=== PATIENT | female | born 1990 | race African-American/Black ===

== ENCOUNTER 2024-11-23 12:50 | Outpatient (CLI) | payer SELFPAY ==
[2024-11-23 13:24] LABS: Basophils Percent Auto 0.5 % (0.2-1.2); Eosinophils Absolute Auto 0.1 K/mm3 (0-0.3); Eosinophils Percent Auto 0.9 % (0-4.4); Hemoglobin 11.1 g/dL (12.0-15.0); Immature Granulocyte Absolute 0.02 K/mm3 (0.00-0.031); Immature Granulocyte Percent A 0.4 % (0-0.5); Lymphocytes Percent Auto 28.6 % (18.3-44.2); Mean Corpuscular HGB Conc 32.6 g/dl (32-36); Mean Corpuscular Hemoglobin 28.5 pg (26-34); Mean Corpuscular Volume 87.4 fl (80-100); Mean Platelet Volume 11.3 fl (7.4-10.4); Monocytes Absolute Auto 0.4 K/mm3 (0.1-0.6); Monocytes Percent Auto 7.7 % (2.6-8.5); Neutrophils Absolute Auto 3.5 K/mm3 (1.3-6.7); Neutrophils Percent Auto 61.9 % (45.5-73.1); Platelet Count Result 220 k/mm3 (150-375); Red Blood Count 3.89 M/mm3 (4.2-5.4); Red Cell Distribution Width 13.5 % (11.5-14.5); White Blood Count 5.6 K/mm3 (4.5-10.0)
[2024-11-23 14:40] LABS: HIV 1/2 Ab P24 Ag Result Negative (Negative)
[2024-11-23 15:05] LABS: Syphilis IgG/IgM Antibody Negative (Negative)
[2024-11-23 15:14] LABS: Hepatitis B Surface Antigen Negative (Negative); Rubella IgG Antibody 62.2 IU/ML
[2024-11-25 03:28] LABS: CMV IgG Antibody >10.00 U/mL; Varicella IgG Antibody 3.31 S/CO
== END 2024-11-23 12:51 | disposition home or self-care (01) ==
PROVIDERS: Visit Provider Student in an Organized Health Care Education/Training Program
DX: N91.2 Amenorrhea, unspecified (principal)
CPT/HCPCS: 36415; 84702; 85025; 86593; 86644; 86703; 86747; 86762; 86787; 86850; 86900; 86901; 87086; 87340; G0432

== ENCOUNTER 2025-02-22 12:46 | Outpatient (CLI) | payer SELFPAY ==
[2025-02-22 14:26] LABS: Hematocrit 32.4 % (37.0-47.0); Hemoglobin 10.3 g/dL (12.0-15.0); Immature Granulocyte Percent A 0.8 % (0-0.5); Lymphocytes Absolute Auto 1.79 K/mm3 (0.9-3.2); Mean Corpuscular HGB Conc 31.8 g/dl (32-36); Mean Corpuscular Hemoglobin 26.3 pg (26-34); Mean Corpuscular Volume 82.7 fl (80-100); Nucleated Red Blood Cells Absolute Auto 0.000 K/mm3 (0.0-0.012); Nucleated Red Blood Cells Perc 0.0 % (0.0-0.2); Platelet Count Result 263 k/mm3 (150-375); Red Blood Count 3.92 M/mm3 (4.2-5.4); White Blood Count 6.2 K/mm3 (4.5-10.0)
[2025-02-22 14:38] LABS: Glucose 1 Hour PP 50gm Dose 161 mg/dL
[2025-02-22 15:18] LABS: HIV 1/2 Ab P24 Ag Result Negative (Negative)
== END 2025-02-22 12:47 | disposition home or self-care (01) ==
PROVIDERS: PCP Student in an Organized Health Care Education/Training Program; Visit Provider Obstetrics & Gynecology
DX: Z34.90 Encounter for supervision of normal pregnancy, unspecified, unspecified trimester (principal); Z3A.00 Weeks of gestation of pregnancy not specified
CPT/HCPCS: 36415; 82947; 85025; 86703; G0432

== ENCOUNTER 2025-03-24 08:09 | Outpatient (RCR) | payer SELFPAY ==
[2025-03-10 10:14] VITALS: BP 99/57; PULSE 89
[2025-03-15 12:56] VITALS: BP 108/61; PULSE 96
--- NOTE | ~2025-03-24 | US_ITS ---
EXAMINATION: US OB BPP wo non-stress DATE: 03/24/2025 9:38 CDT INDICATION: Monitoring blood sugars. Gestational diabetes. TECHNIQUE: Real-time transabdominal obstetric ultrasound. FINDINGS: Ultrasound dated 03/15/2025 There is a single living fetus in vertex presentation. The placenta is anterior without placenta pre via. Amniotic fluid index below normal limits measuring 7.1 cm (normal range for gestational age is 7 .3-23.9 cm. cardiac activity and movement is noted with a heart rate of 123 beats per minute. Biophysical profile: breathin of 2 movement: 2 of 2 tone: 2 of 2 Amniotic flud pocket: 2 of 2 Total score: 8 of 8 IMPRESSION: 1. Single living intrauterine in vertex presentation. 2: Total biophysical profile score of 8/8. 3: Oligohydramnios. Reviewed, dictated and finalized at location A.
--- NOTE | ~2025-03-24 | US_ITS ---
EXAMINATION: US OB BPP wo non-stress DATE: 03/15/2025 14:20 CDT INDICATION: Gestational diabetes TECHNIQUE: Real-time transabdominal obstetric ultrasound. FINDINGS: 4 para 3 There is a single intrauterine gestation in vertex presentation. The placenta is anterior without pl acenta previa. cardiac activity and movement is noted with a heart rate of 135 beats per minute. Biophysical profile: breathin of 2 movement: 2 of 2 tone: 0 of 2 Amniotic fluid pocket: 2 of 2 Total score: 6 of 8 Amniotic fluid index measures 11.1 cm (within normal limits). IMPRESSION: 1. Single intrauterine gestation in vertex presentation. 2: Total biophysical profile score of 6 out of 8. Amniotic fluid index measures 11.1 cm, within normal limits. While detailed evaluation by the isotope technologist demonstrated no movement of the extremities (as described), no sonographic images of the extremities were submitted (static or otherwise). Additional images of the nonmobile extremities was requested, but the patient had been discharged at the time of this request. Short-term follow-up is recommended. Reviewed, dictated and finalized at location A. IMPRESSION: 1. Single intrauterine gestation in vertex presentation. 2: Total biophysical profile score of 6 out of 8. Amniotic fluid index measures 11.1 cm, within normal limits. While detailed evaluation by the isotope technologist demonstrated no moveme nt of the extremities (as described), no sonographic images of the extremities were submitted (static or otherwise). Additional images of the nonmobile extremities was requested, but the patient h ad been discharged at the time of this request. Short-term follow-up is recommended.
[2025-03-24 09:25] VITALS: BP 105/58; PULSE 92
== END 2025-04-15 13:38 | disposition other institution (70) ==
LOC: ANHOBOP 08:09
PROVIDERS: PCP Student in an Organized Health Care Education/Training Program; Visit Provider Student in an Organized Health Care Education/Training Program
DX: O24.419 Gestational diabetes mellitus in pregnancy, unspecified control (principal); Z3A.36 36 weeks gestation of pregnancy; Z3A.37 37 weeks gestation of pregnancy; Z3A.38 38 weeks gestation of pregnancy
CPT/HCPCS: 59025; 76819

== ENCOUNTER 2025-03-29 17:20 | Inpatient (IN) | payer MEDICAID, SELFPAY ==
[2025-03-29 17:43] VITALS: BMI 28.5
--- NOTE | 2025-03-29 17:45 | LDADM ---
This patient, Suraj Nesbitt, was admitted to Labor/Delivery/Recovery 107 on 03/29/25 at 17:20. Plans for labor, pain management and were discussed with patient. Patient/family oriented to hospital policies and general routines including ID bracelet, bed and alarms, visiting hours, pain management, procedures, bathroom and other care routines, personal items, smoking policy, room service/diet and guest tray routines, security routines, and visiting hours. Patient/Family are encouraged to report perceived risks to care and to ask questions if they do not understand what they are told or what they should do. See OBIX for further documentation.
[2025-03-29 18:05] VITALS: BP 109/59; PULSE 87
[2025-03-29 18:09] LABS: Hematocrit 32.1 % (37.0-47.0); Hemoglobin 10.2 g/dL (12.0-15.0); Immature Granulocyte Percent A 0.5 % (0-0.5); Lymphocytes Absolute Auto 1.87 K/mm3 (0.9-3.2); Mean Corpuscular HGB Conc 31.8 g/dl (32-36); Mean Corpuscular Hemoglobin 24.7 pg (26-34); Mean Corpuscular Volume 77.7 fl (80-100); Nucleated Red Blood Cells Absolute Auto 0.000 K/mm3 (0.0-0.012); Nucleated Red Blood Cells Perc 0.0 % (0.0-0.2); Platelet Count Result 290 k/mm3 (150-375); Red Blood Count 4.13 M/mm3 (4.2-5.4); White Blood Count 6.0 K/mm3 (4.5-10.0)
[2025-03-29 18:20] VITALS: TEMP 36.8
[2025-03-29] MEDS: DINOPROSTONE 10 MG VAG INSERT VAGINAL (18:25)
[2025-03-29 19:01] LABS: Syphilis IgG/IgM Antibody Non-Reactive (Nonreactive)
[2025-03-29 22:00] VITALS: TEMP 36.8
[2025-03-30] VITALS (89 sets, daily range): BP systolic 81–121; BP diastolic 48–77; PULSE 57–159; RESP 16; TEMP 36.2–36.9; O2SAT 91–100
--- NOTE | 2025-03-30 06:56 | WPDHPUPDATE1 ---
History and Physical Update Update Date/Time: 03/30/25 06:56 35 yo who presents for IOL for GDM. History and Physical has been reviewed, including an updated exam of the patient. There are NO changes in the patient's condition. Risks, benefits, and alternatives have been discussed and questions answered. Patient agrees to proceed with procedure. A/P: admit to L&D routine admission orders Rh+ GBS negative patient failed her 1 hr GCT, did not complete 3 hr GTT. Pt had been checking blood sugars. may have epidural plan for cervidil IOL
[2025-03-30] MEDS: LACTATED RINGERS 1,000 ML 125 ML IV CONT ×2 (08:02→14:27)
[2025-03-30] MEDS: OXYTOCIN 30 UNITS/NS 500 ML 30 UNITS/500 ML BAG IV CONT ×2 (08:02→15:40)
[2025-03-30] MEDS: LIDOCAINE 1% LOCAL INJ 20 ML VIAL INFILTRATE (15:15)
--- NOTE | 2025-03-30 15:18 | PM.OBPRVD ---
OB - Vaginal Delivery Note Procedure Delivery date: 03/30/25 Events: Gestational Diabetes Induction method: Per Cervidil Protocol Delivery augmentation: Rupture of Membranes and Pitocin Delivery monitor: External FHT and External Uterine Route of delivery: Episiotomy description: None Laceration Description: Perineal - 1st Degree Delivery repair: vicryl Specimen: No Quantitative Blood Loss (ml): 100 Anesthesia type: None Disposition: Floor Complications: No immediate complications Narrative: Patient pushed for a spontaneous vaginal delivery. A nuchal cord x 1 was noted and delivered through. The fetus was delivered atraumatically and placed on the maternal abdomen. The cord was clamped and cut after 1 minute of life. The cord was double clamped and cut and a segment of cord was collected for cord gases. Cord blood was collected for blood type and Coomb's testing. The placenta delivered spontaneously and was noted to be intact. The perineum was inspected and a 1st degree perineal laceration was noted. The area was anesthetized with lidocaine. The laceration was repaired with 3-0 vicryl in a running fashion. The fundus was noted to be firm and good hemostasis was noted. The mom and infant were stable in the delivery room. [place] Baby Date of : 03/30/25 Time of : 15:05 Gestational Age by Date: 39 Infant gender: Male presentation: vertex position: Right Occiput Anterior Placenta delivery description: Spontaneous Cord Vessel Description: 3 Vessels and Nuchal Cord score one minute: 8 score five minutes: 9
[2025-03-30] MEDS: ACETAMINOPHEN 325 MG TABLET 650 MG PO (16:51)
[2025-03-30] MEDS: BENZOCAINE 20% AER SPR (*SP) 56 GM CAN 1 SPRAY TOPICAL (17:20)
[2025-03-30] MEDS: WITCH HAZEL 40 PADS 1 PAD TOPICAL (17:20)
[2025-03-30] MEDS: IBUPROFEN 600 MG TABLET PO (20:31)
[2025-03-31 00:53] VITALS: BP 90/60; PULSE 69; RESP 18; TEMP 36.9; O2SAT 98
[2025-03-31 04:54] LABS: Hematocrit 31.6 % (37.0-47.0); Hemoglobin 9.9 g/dL (12.0-15.0)
[2025-03-31 07:30] VITALS: BP 96/60; PULSE 69; RESP 16; TEMP 36.9; O2SAT 100
[2025-03-31] MEDS: DOCUSATE SODIUM 100 MG CAPSULE PO (08:05)
[2025-03-31] MEDS: MULTIVIT/MIN/PREN/FOL AC/IRON TABLET 1 TAB PO (08:05)
--- NOTE | 2025-03-31 09:55 | PC.NURSE ---
Introductions were made, then consulted with patient to assess needs related to . Mother states that is going well so far. She breastfed her 3 other children. Resources provided for inpatient and outpatient services with the feeding sheet, mom/baby guide and name written on the communication board. Patient desires a WIC referral. Mother voiced understanding of information and will call if there is a request for assistance. Reported to the Primary RN.
[2025-03-31 12:23] VITALS: BP 90/60; PULSE 80; RESP 18; TEMP 37.1; O2SAT 96
--- NOTE | 2025-03-31 12:39 | P.DS_ITS ---
DS: Admitting Diagnosis Discharge Date 03/31/25 Admitting Diagnosis intrauterine at term gestational diabetes advanced maternal age DS: Discharge Diagnosis Discharge Diagnosis (1) Normal vaginal delivery: Code(s): O80 - Encounter for full-term uncomplicated delivery Status: Acute OB - DS: Summary OB Procedures : None OB Procedures Intrapartum: Spontaneous Vag Delivery OB Procedures: : None Peripartum Data Laceration Description: Perineal - 1st Degree Episiotomy description: None Status at Discharge Functional status at discharge: independent ambulation Overall status at discharge: patient is back to baseline Time Spent with Patient Time attestation: Total time spent providing and/or coordinating discharge services: Time spent: Less than 30 minutes Exam Const: General: comfortable and no acute distress Resp: Effort & Inspection: normal respiratory effort Auscultation: clear to auscultation bilaterally Cardio: Rate: regular rate GI: GI Palp: Yes Soft to palpation Auscultation: normal bowel sounds Other: Fundus firm below umbilicus Psych: Appearance: grossly normal Mental Status: mental status grossly normal Affect: normal affect DS: Data Data Completed and Pending Labs on day of discharge: Labs from last 24 hours 03/31/25 03/30/25 04:34 15:00 Hgb 9.9 L Hct 31.6 L POC Capillary Glucose 98 Discharge Plan Discharge Discharging Clinician: Michele Hawk Patient Disposition: Home Activity: as tolerated and pelvic rest Diet: regular Patient Instructions: Antibiotic Form, Vaginal Delivery (DC) Patient Language: [place] Stand Alone Forms: General Discharge Information Follow-up/Referrals: Michele Hawk MD [Physician] - 4 Weeks Discharge Medications: New docusate sodium 100 mg Capsule 100 mg PO BID PRN (Reason: Constipation) Qty: 30 0RF acetaminophen 500 mg tablet 500 mg PO Q6H PRN (Reason: pain) Qty: 30 0RF ibuprofen 600 mg tablet 600 mg PO Q6H PRN (Reason: pain) Qty: 30 0RF Continued ferrous sulfate 325 mg (65 mg iron) tablet 325 mg PO DAILY Qty: 30 1RF Discontinued aspirin [Adult Low Dose Aspirin] 81 mg tablet,delayed release (DR/EC) 81 mg PO DAILY Date of admission: 03/29/25 17:20 Primary Care Provider: PHYSICIAN NOT ON STAFF,NONSTAFF Admitting Provider: Michele Hawk Attending physician on admission: Michele Hawk Condition: Stable
[2025-04-02 12:01] VITALS: BP 103/54; PULSE 85; RESP 18; TEMP 36.9; O2SAT 100
== END 2025-03-31 17:05 | disposition home or self-care (01) | DRG 560 ==
LOC: ANHLDR 03-30 10:11 → ANHOB2 03-30 17:51
PROVIDERS: Admitting Provider Student in an Organized Health Care Education/Training Program; Visit Provider Student in an Organized Health Care Education/Training Program
DX: O24.429 Gestational diabetes mellitus in childbirth, unspecified control (principal); Z37.0 Single live birth; Z3A.39 39 weeks gestation of pregnancy; O69.81X0 Labor and delivery complicated by cord around neck, without compression, not applicable or unspecified; O70.0 First degree perineal laceration during delivery
CPT/HCPCS: 36415; 82948; 85014; 85018; 85025; 86593; 86850; 86900; 86901; A9270; J2003; J2590; J7120